=== PATIENT | female | born 1990 | race Caucasian/White ===

== ENCOUNTER 2017-07-25 09:33 | Inpatient (IN) | payer OTHER ==
[2017-07-25] VITALS (8 sets, daily range): BP systolic 116–128; BP diastolic 55–70; PULSE 64–95; RESP 18–20; TEMP 97.6–98.7; O2SAT 96–98
[~2017-07-25 09:33] MED LIST: PREN1CAP30 PO; ZANT150T2 PO
[2017-07-25 13:23] LABS: AUTOMATED NEUTROPHIL # 8.2 TH/MM3 (1.8-7.7); BASOPHIL % 0.3 % (0.0-2.0); EOSINOPHIL # 0.1 TH/MM3 (0-0.4); EOSINOPHIL % 0.5 % (0.0-4.0); HEMATOCRIT 33.5 % (35.0-46.0); HEMO FLAGS DIFF FINAL; LYMPH % 21.5 % (9.0-44.0); LYMPHOCYTE # 2.4 TH/MM3 (1.0-4.8); MEAN CELL VOLUME 90.6 FL (80.0-100.0); MEAN CORPUSCULAR HEMOGLOBIN 30.4 PG (27.0-34.0); MEAN CORPUSCULAR HGB CONC 33.5 % (32.0-36.0); MONO % 4.5 % (0.0-8.0); NEUT % 73.2 % (16.0-70.0); PLATELET COUNT 365 TH/MM3 (150-450); RED CELL DISTRIBUTION WIDTH 15.5 % (11.6-17.2); WHITE BLOOD COUNT 11.2 TH/MM3 (4.0-11.0)
--- NOTE | 2017-07-25 13:28 | HHI.HP ---
History & Physical H&P AGRONOMY INTERNSHIP Consult (Detail) Patient Name: Claritza Choe Unit Number: [id number] Date of : 1990 Patient Status: Registered Clinic Attending Doctor: Ayush Titus MD HPI HPI Chief Complaint Consultation for repeat Date Seen: Jul 25, 2017 Time Seen: 13:30 Travel History International Travel<30 Days: No Contact w/Intl Traveler<30Days: No Known Affected Area: No History of Present Illness HPI 26-year-old 4 para 2, AB 1 with an EDC of August 01 based on last menstrual period and consistent with second trimester ultrasound. She has had 2 prior C-sections and desires elective repeat. The risks benefits and alternatives were reviewed with her regarding this plan and consent was obtained to proceed with repeat on July 25 at 2 PM. Weeks Gestation: 37 Para: 2 : 4 Last Menstrual Period: Oct 25, 2016 : 1 History (Limited) History Past Medical History Medical History: Denies Significant Hx Obstetric History Obstetric History 2 prior C-sections [facility] has been uncomplicated. She smokes one half pack cigarettes per day. Past Surgical History Narrative Surgical 2 Family History Family History: Negative Social History Alcohol Use: No Tobacco Use: Yes (one half pack per day) Substance Abuse: No Allergies-Medications Allergies-Medications (Allergen,Severity, Reaction): Coded Allergies: No Known Allergies (Verified , 07/12/17) Home Meds Active Scripts Ranitidine (Zantac) 150 Mg Tab, 150 MG PO BID for Reduce Stomach Acid, #60 TAB 6 Refills Prov:Paulina Lofton 04/10/17 Without A W/Fe Fum-Fe (Provida Dha 16-16-1.25-110 mg) 1 Cap Cap, 1 CAP PO DAILY, #60 BOTTLE 5 Refills Prov:Paulina Lofton 04/10/17 ROS Review of Systems General / Constitutional: No: Fever, Weight Gain, Weight Loss, Chills, Other Cardiovascular: No: Irregular Rhythm, Chest Pain or Discomfort, Palpitations, Tachycardia, Syncope, Varicosities, Edema, Cyanosis, Other Respiratory: No: Cough, Short of Breath, Wheezing, Other Gastrointestinal: No: Nausea, Vomiting, Diarrhea, Abdominal Pain, Hematemesis, Hematochezia, Constipation, Changes in Bowel Habits, Indigestion, Loss of Appetite, Other Genitourinary: No: Urgency, Frequency, Dysuria, Nocturia, Hematuria, Decreased Urinary Output, Oliguria, Hesitancy, Dribbling, Incontinence, Pelvic Pain, Dyspareunia, Discharge, Menorrhagia, Vaginal Bleeding, Other Physical Exam Physical Exam Narrative GENERAL: Well-nourished, well-developed patient. SKIN: Warm and dry. HEAD: Normocephalic and atraumatic. EYES: No scleral icterus. No injection or drainage. ENT: No nasal drainage noted. Mucous membranes pink. Airway patent. NECK: Supple, trachea midline. No JVD. CARDIOVASCULAR: Regular rate and rhythm without murmurs, gallops, or rubs. RESPIRATORY: Breath sounds equal bilaterally. No accessory muscle use. ABDOMEN/GI: Abdomen soft, non-tender, bowel sounds present, no rebound, no guarding Gravid to [-] weeks size Fundal Height: [36-] GENITOURINARY: EXTREMITIES: No cyanosis or edema. BACK: Nontender without obvious deformity. No CVA tenderness. NEUROLOGICAL: Awake and alert. Motor and sensory grossly within normal limits. Five out of 5 muscle strength in all muscle groups. Normal speech. Data Data Data Labs O+, AST negative, hematocrit 30%, rubella immune, RPR nonreactive, hep C negative, HIV negative, GC and Chlamydia negative GBS negative MDM MDM Medical Record Reviewed: Yes Narrative Course / MDM Assessment: 3 9 week intrauterine with an EDC of August 01 with 2 prior C-sections desiring elective repeat Plan: The patient have repeat section on July 25 at 2 PM. Disposition: ADMIT Condition: Good AYUSH TITUS MD Jul 12, 2017 13:50 Ayush Titus II, MD Jul 25, 2017 13:28
[2017-07-25] MEDS ORDERED: LACTATED RINGER'S 1000 ML INJ 1,000 ML IV ONE (13:30)
[2017-07-25 13:37] LABS: BACTERIA, URINE OCC /hpf; BLOOD, URINE NEG (NEG); COMMENT (UR) CULT NOT INDICATED; CULTURE IF INDICATED CULT NOT INDICATED; GLUCOSE,URINE NEG (NEG); KETONE, URINE NEG (NEG); MUCUS URINE FEW /lpf (OCC); NITRITE,URINE NEG (NEG); SQUAMOUS EPITHELIAL CELL URINE 23 /hpf (0-5); URINE COLOR YELLOW (YELLW/STRAW)
[2017-07-25] MEDS ORDERED: LACTATED RINGER'S 1000 ML INJ 1,000 ML IV SCH ×2 (14:00→21:03)
[2017-07-25] MEDS ORDERED: ceFAZolin 2 GM PREMIX 50 ML IV SCH (14:15)
[2017-07-25] MEDS ORDERED: CITRIC ACID-SODIUM CITRATE LIQ 30 ML UDC PO SCH (14:45)
[2017-07-25] MEDS ORDERED: ONDANSETRON HCL 4 MG/2 ML VIAL ONE (14:51)
[2017-07-25] MEDS ORDERED: ACETAMINOPHEN 1000 MG/100 ML 100 ML IV ONE (14:51)
[2017-07-25] MEDS ORDERED: MORPHINE SULFATE PF 5 MG/10 ML VIAL ONE (14:51)
[2017-07-25] MEDS ORDERED: OXYTOCIN 10 UNIT/ML AMP ONE (14:51)
[2017-07-25] MEDS ORDERED: MORPHINE SULFATE PF 5 MG/10 ML VIAL IT ONE (15:00)
[2017-07-25] MEDS ORDERED: LACTATED RINGER'S 1,000 ML BAG IV ONE (15:22)
[2017-07-25] MEDS ORDERED: ACETAMINOPHEN 1000 MG/100 ML VIAL IV SCH (16:00)
[2017-07-25] MEDS ORDERED: SODIUM CHLORIDE 0.9% FLUSH 10 ML FLUSH IV FLUSH PRN (16:15)
[2017-07-25] MEDS ORDERED: ZOLPIDEM TARTRATE 5 MG TAB PO PRN (16:15)
[2017-07-25] MEDS ORDERED: OXYTOCIN 30 UNITS-500ML PREMIX 500 ML IV ONE (16:15)
[2017-07-25] MEDS ORDERED: ONDANSETRON HCL 4 MG/2 ML VIAL IV PUSH PRN (16:15)
[2017-07-25] MEDS ORDERED: oxyCODONE/ACETAMINOPHEN 5 MG/325 MG TAB PO PRN (16:15)
[2017-07-25] MEDS ORDERED: ACETAMINOPHEN 325 MG TAB PO PRN (16:15)
[2017-07-25] MEDS ORDERED: EPIDURAL-DIPHENHYDRAMINE HCL 50 MG CAP PO PRN (19:00)
[2017-07-25] MEDS ORDERED: EPIDURAL-DIPHENHYDRAMINE HCL 50 MG/ML VIAL IV PUSH PRN (19:00)
[2017-07-25] MEDS ORDERED: EPIDURAL-NALOXONE HCL 0.4 MG/ML AMP IV PUSH PRN (19:00)
[2017-07-25] MEDS ORDERED: EPIDURAL-NO SYSTEMIC NARCOTICS PRN (19:00)
[2017-07-25] MEDS ORDERED: EPIDURAL-DO NOT ADMINISTER ANTICOAGULANTS PRN (19:00)
[2017-07-25] MEDS: IBUPROFEN 600 MG TAB PO PRN (21:39)
[2017-07-26 01:28] VITALS: BP 112/69; PULSE 80; RESP 20; TEMP 98.1
[2017-07-26] MEDS ORDERED: OXYTOCIN 30 UNITS-500ML PREMIX 500 ML IV PRN (02:15)
[2017-07-26] MEDS ORDERED: KETOROLAC TROMETHAMINE 30 MG/ML (IVP) VIAL ONE (03:12)
[2017-07-26] MEDS: oxyCODONE/ACETAMINOPHEN 5 MG/325 MG TAB PO PRN ×5 (03:57→21:33)
[2017-07-26] MEDS: DOCUSATE SODIUM 50 MG/SENNA 8.6 MG TAB PO PRN ×2 (04:01→16:18)
[2017-07-26] MEDS ORDERED: KETOROLAC TROMETHAMINE 30 MG/ML (IVP) VIAL IV PUSH ONE (04:45)
[2017-07-26] MEDS: SODIUM CHLORIDE 0.9% FLUSH 10 ML FLUSH IV FLUSH SCH ×2 (05:09→20:52)
[2017-07-26 05:16] VITALS: BP 107/73; PULSE 79; RESP 18; TEMP 97.9
[2017-07-26 07:35] LABS: AUTOMATED NEUTROPHIL # 9.3 TH/MM3 (1.8-7.7); BASOPHIL % 0.4 % (0.0-2.0); EOSINOPHIL # 0.1 TH/MM3 (0-0.4); EOSINOPHIL % 0.7 % (0.0-4.0); HEMATOCRIT 29.1 % (35.0-46.0); HEMO FLAGS DIFF FINAL; LYMPH % 23.1 % (9.0-44.0); LYMPHOCYTE # 3.1 TH/MM3 (1.0-4.8); MEAN CELL VOLUME 91.5 FL (80.0-100.0); MEAN CORPUSCULAR HEMOGLOBIN 30.5 PG (27.0-34.0); MEAN CORPUSCULAR HGB CONC 33.3 % (32.0-36.0); MONO % 7.1 % (0.0-8.0); NEUT % 68.7 % (16.0-70.0); PLATELET COUNT 305 TH/MM3 (150-450); RED BLOOD COUNT 3.18 MIL/MM3 (4.00-5.30); RED CELL DISTRIBUTION WIDTH 15.8 % (11.6-17.2); WHITE BLOOD COUNT 13.6 TH/MM3 (4.0-11.0)
[2017-07-26 07:45] VITALS: BP 108/63; PULSE 88; RESP 20; TEMP 97.3
--- NOTE | 2017-07-26 08:42 | HHI.OB ---
Subjective Post Operative Day: 1 Remarks Pt seen and examined this morning. Postoperative day # 1 AFVSS overnight. Incision not draining. Decreased lochia. Denies dysuria. No breast tenderness. She is feeding the baby via breast and bottle. Appetite good. No nausea or vomiting. Patient has not yet had a bowel movement or passed bowel gas. Ambulating well. Denies calf pain or shortness of breath. Otherwise, she is doing well this morning and has no other concerns. Objective Vitals/I&O Vital Signs Date Time Temp Pulse Resp B/P (MAP) Pulse Ox O2 Delivery O2 Flow Rate FiO2 07/26/17 07:45 97.3 88 20 108/63 (78) 07/26/17 05:16 97.9 79 18 107/73 (84) 07/26/17 04:20 20 07/26/17 01:28 98.1 80 20 112/69 (83) 07/26/17 00:43 18 07/25/17 22:39 18 07/25/17 21:46 98.2 07/25/17 21:46 95 20 128/63 (84) 07/25/17 18:14 20 07/25/17 17:43 18 07/25/17 17:00 97.6 64 18 123/70 (87) 07/25/17 16:40 97.8 07/25/17 16:40 18 98 07/25/17 16:40 116/55 (75) 07/25/17 16:25 75 120/66 (84) 07/25/17 16:25 18 96 07/25/17 16:10 97.7 82 18 117/59 (78) 96 07/25/17 12:45 98.7 20 Result Diagram: 07/26/17 0710 Objective Remarks GENERAL: Well-nourished, well-developed patient. CARDIOVASCULAR: Regular rate and rhythm without murmurs, gallops, or rubs. RESPIRATORY: Breath sounds equal bilaterally. No accessory muscle use. ABDOMEN/GI: Abdomen soft, non-tender, bowel sounds present. Incision: Clean, dry and intact. Fundus: Firm, non-tender at umbilicus. GENITOURINARY: Light to moderate bleeding. EXTREMITIES: No cyanosis or edema, non-tender, without signs of DVT. Medications and IVs Current Medications Medications (Trade) Dose Ordered Sig/Jacinda Route Start Time Stop Time Status Last Admin Cefazolin Sodium/ Dextrose 50 ml @ 100 mls/hr [employer] IV 07/25/17 14:15 07/29/17 14:14 07/25/17 14:38 (Bicitra Liq) 30 ml [employer] PO 07/25/17 14:45 07/29/17 14:44 07/25/17 14:37 Lactated Ringer's 1,000 ml @ 100 mls/hr Q10H IV 07/25/17 21:03 07/26/17 17:02 07/25/17 21:42 Oxytocin 500 ml @ 100 mls/hr UNSCH X1 PRN IV 07/26/17 02:15 07/27/17 02:14 (NS Flush) 2 ml BID IV FLUSH 07/25/17 21:00 (NS Flush) 2 ml UNSCH PRN IV FLUSH 07/25/17 16:15 (Mylicon Chew) 80 mg QID PRN PO 07/25/17 16:15 (Tylenol) 650 mg Q6H PRN PO 07/25/17 16:15 (Motrin) 600 mg Q6H PRN PO 07/25/17 16:15 07/25/17 21:39 (Percocet 5-325 Mg) 1 tab Q4H PRN PO 07/25/17 16:15 (Percocet 5-325 Mg) 2 tab Q4H PRN PO 07/25/17 16:15 07/26/17 03:57 (Dawna-Colace) 2 tab Q12H PRN PO 07/25/17 16:15 07/26/17 04:01 (Ambien) 5 mg HS PRN PO 07/25/17 16:15 (M-M-R Ii Inj) 0.5 ml ONCE ONCE SQ 07/26/17 16:00 07/26/17 16:01 (Boostrix Inj) 0.5 ml ONCE ONCE IM 07/26/17 16:00 07/26/17 16:01 (Zofran Inj) 4 mg Q6H PRN IV PUSH 07/25/17 16:15 Miscellaneous Information NO SYSTEMIC NARCOTICS TO BE GIVEN FO... UNSCH PRN .XX 07/25/17 19:00 07/26/17 18:59 (Narcan Inj) 0.4 mg UNSCH PRN IV PUSH 07/25/17 19:00 07/26/17 18:59 (Benadryl Inj) 25 mg Q6H PRN IV PUSH 07/25/17 19:00 07/26/17 18:59 (Benadryl) 50 mg Q6H PRN PO 07/25/17 19:00 07/26/17 18:59 Miscellaneous Information ALL NURSING DEPARTMENTS UNSCH PRN .XX 07/25/17 19:00 07/26/17 18:59 Assessment/Plan Assessment and Plan 26y/o female who is postop day # 1 s/p . -Continue routine care. -Percocet and Motrin PRN pain. -Postop H&H: 9.7/29.1 -Encouraged OOB. Advised pelvic rest for 6 wks. will need follow-up appointment for incision check in 1-2 weeks. -Re: ctrl, she would like discuss her options at her follow-up appointment. -Anticipate discharge in 1-[address] Tacho MD Discharge Planning 1-2 days pending clinical course Te Sloan MD R2 Jul 26, 2017 08:42
[2017-07-26] MEDS: IBUPROFEN 600 MG TAB PO PRN ×3 (09:37→23:12)
[2017-07-26 12:00] VITALS: BP 112/67; PULSE 86; RESP 18; TEMP 97.9
[2017-07-26] MEDS ORDERED: DIPHTH/TETANUS/ACEL PERTUSSIS (BOOSTER) 0.5 ML VIAL/PFS IM ONE (16:00)
[2017-07-26] MEDS ORDERED: MEASLES, MUMPS, RUBELLA VACCINE 0.5 ML VIAL SQ ONE (16:00)
[2017-07-26 20:03] VITALS: BP 119/65; PULSE 97; RESP 18; TEMP 97.9
[2017-07-26] MEDS: SIMETHICONE 80 MG CHEWABLE TAB PO PRN (21:33)
[2017-07-27] MEDS: oxyCODONE/ACETAMINOPHEN 5 MG/325 MG TAB PO PRN ×3 (01:34→11:39)
[2017-07-27] MEDS: IBUPROFEN 600 MG TAB PO PRN (05:27)
[2017-07-27] MEDS ORDERED: ACET1TAB86 PO (08:30)
[2017-07-27] MEDS ORDERED: OXYC1TAB63 PO (08:30)
--- NOTE | 2017-07-27 08:54 | HHI.OB ---
Subjective Post Operative Day: 2 Remarks Postoperative day # 2. AFVSS overnight. Incision not draining. Decreased lochia. Denies dysuria. No breast tenderness. She is feeding the baby via formula. Appetite good. No nausea or vomiting. Patient has not yet had a bowel movement. Ambulating well. Denies calf pain or shortness of breath. Otherwise, she is doing well this morning and has no other concerns. Wants to go home. Objective Vitals/I&O Vital Signs Date Time Temp Pulse Resp B/P (MAP) Pulse Ox O2 Delivery O2 Flow Rate FiO2 07/27/17 00:12 18 07/26/17 22:33 18 07/26/17 20:03 97.9 97 18 119/65 (83) 07/26/17 12:00 97.9 86 18 112/67 (82) Result Diagram: 07/26/17 0710 Objective Remarks GENERAL: Well-nourished, well-developed female in no apparent distress. CARDIOVASCULAR: Regular rate and rhythm without murmurs, gallops, or rubs. RESPIRATORY: Breath sounds equal bilaterally. No accessory muscle use. ABDOMEN/GI: Abdomen soft, mildly tender to palpation over abdomen, bowel sounds present. Incision: Clean, dry and intact. Fundus: Firm, non-tender at umbilicus. GENITOURINARY: Light to moderate bleeding. EXTREMITIES: No cyanosis or edema, non-tender, without signs of DVT. 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 07/25/17 14:15 07/29/17 14:14 07/25/17 14:38 (Bicitra Liq) 30 ml [employer] PO 07/25/17 14:45 07/29/17 14:44 07/25/17 14:37 (NS Flush) 2 ml BID IV FLUSH 07/25/17 21:00 (NS Flush) 2 ml UNSCH PRN IV FLUSH 07/25/17 16:15 (Mylicon Chew) 80 mg QID PRN PO 07/25/17 16:15 07/26/17 21:33 (Tylenol) 650 mg Q6H PRN PO 07/25/17 16:15 (Motrin) 600 mg Q6H PRN PO 07/25/17 16:15 07/27/17 05:27 (Percocet 5-325 Mg) 1 tab Q4H PRN PO 07/25/17 16:15 (Percocet 5-325 Mg) 2 tab Q4H PRN PO 07/25/17 16:15 07/27/17 05:27 (Dawna-Colace) 2 tab Q12H PRN PO 07/25/17 16:15 07/26/17 16:18 (Ambien) 5 mg HS PRN PO 07/25/17 16:15 (Zofran Inj) 4 mg Q6H PRN IV PUSH 07/25/17 16:15 Assessment/Plan Assessment and Plan 26y/o female who is postop day # 2 s/p . -Continue routine care. -Percocet and Motrin PRN pain. -Postop H&H: 9.7/29.1 -Encouraged OOB. Advised pelvic rest for 6 wks. will need follow-up appointment for incision check in 1-2 weeks. -Re: ctrl, she would like discuss her options at her follow-up appointment. -Anticipate discharge today or tomorrow pending pain control dw Dr. Massimo MD Discharge Planning 1-2 days pending clinical course Adele Mcgowan MD R2 Jul 27, 2017 08:54
[2017-07-27 09:00] VITALS: BP 112/70; PULSE 90; RESP 20; TEMP 98.2
[2017-07-27] MEDS ORDERED: KETOROLAC TROMETHAMINE 10 MG TAB PO ONE (11:00)
[2017-07-27] MEDS: SIMETHICONE 80 MG CHEWABLE TAB PO PRN (11:38)
[2017-07-27] MEDS: DOCUSATE SODIUM 50 MG/SENNA 8.6 MG TAB PO PRN (11:39)
--- NOTE | 2017-07-27 12:14 | HHI.DCPOC ---
Discharge Care Plan Diagnosis: (1) delivery delivered Report Symptoms to Your Doctor -Temperature above 100.5 degrees -Redness, of incision or excessive or foul smelling drainage -Unusual pain or calf pain -Increased vaginal bleeding -Painful or difficulty urinating -Feelings of extreme sadness or anxiety after 2 weeks Goals to Promote Your Health * To prevent worsening of your condition and complications * To maintain your health at the optimal level Directions to Meet Your Goals Take your medications as prescribed Follow your dietary instruction Follow activity as directed Ensure plenty of rest for recovery Drink fluids for hydration Keep your appointments as scheduled Take your immunizations and boosters as scheduled If your symptoms worsen call your PCP, if no PCP go to Urgent Care Center or Emergency Room Smoking is Dangerous to Your Health. Avoid second hand smoke Call the 24-hour crisis hotline for domestic abuse at Adele Mcgowan MD R2 Jul 27, 2017 12:14 Gene Mendoza MD Jul 27, 2017 13:12
[2017-07-27] MEDS ORDERED: KETO10 PO (12:17)
[2017-07-27] MEDS ORDERED: SENN1TAB PO (12:53)
--- NOTE | 2017-07-27 12:56 | HHI.PR ---
Addendum to Inpatient Note Addendum Reason: Additional Documentation Additional Information Patient re-evaluated at bedside and now states she wants to be discharged today. She would like to go home this afternoon. Baby has been cleared by neonatology service for home. Vital signs reviewed and wnl. Abdominal exam reveals generalizes pain but patient denies pain with ambulation, which she has done regularly since delivery without incident. Still passing flatus without BM but she states she can take Dawna-Colace at home. Lochia decreasing. She is counseled to follow-up with [employer] within one week-states she has appointment with [facility] scheduled. She is counseled to return to hospital if any new concerns arise. She has no other concerns and expressed understanding of importance of follow-up. TAMIKA Mendoza (Adele Mcgowan MD R2) Additional Information Patient seen and evaluated with resident under direct supervision, agree with assessment and plan. (Gene Mendoza MD) Adele Mcgowan MD R2 Jul 27, 2017 12:56 Gene Mendoza MD Jul 27, 2017 13:13
[2017-07-27] MEDS ORDERED: KETOROLAC TROMETHAMINE 10 MG TAB PO SCH (15:00)
--- NOTE | 2017-07-27 20:12 | MP ---
cc: JESSICA WINKLER MD DATE OF SURGERY 07/25/17 PREOPERATIVE DIAGNOSIS Previous at term for repeat . POSTOPERATIVE DIAGNOSIS Previous at term for repeat . PROCEDURE PERFORMED Repeat low transverse section. SURGEON Tacho. DISASTER DIRECTOR Dr. Noland[facility] ANESTHESIA Spinal. PREOPERATIVE NOTE The patient is a 26-year-old white female G4, P2, previous section times two who presents for repeat section at 39-weeks. The patient understands the risks and benefits of the procedure. PROCEDURE The patient was taken to the operating room, placed in the supine position on the operating room table. After adequate spinal anesthesia was administered, she was prepped and draped for abdominal surgery. A previous Pfannenstiel incision was incised out and cast away. The incision carried through the fascia sharply and the fascia dissected off the rectus muscle and the rectus split in the midline. The peritoneal cavity was entered sharply. The bladder blade placed at the lower edge of the incision and the viscera peritoneum reflected off the lower uterine segment, placed on the bladder blade. A transverse hysterotomy was made and extended bluntly bilaterally and a female was delivered at 3:21 p.m., 's 6 and 9, weight 3250 grams. There were no complications. Delivery cord blood obtained. The placenta was manually extracted. The uterus exteriorized. The hysterotomy closed in a running layer of chromic followed by imbricating suture of same. Hemostasis was achieved. The bladder reapproximated with a 2-0 Vicryl running suture. The uterus elevated, blood suctioned from the cul-de-sac and gutters. The uterus placed into the peritoneal cavity. The parietal peritoneum closed in running layers of 2-0 Vicryl. The fascia closed in a running layer of 0 Vicryl. Subcutaneous tissues were reapproximated with 3-0 plain in a running suture. Skin closed with subcuticular stitch of 3-0 Monocryl. ___ dressing applied. ESTIMATED BLOOD LOSS 500 cc. COMPLICATIONS There were no complications. Sponge, needle and instrument counts were correct x 2 and the patient was taken to recovery in stable condition. MD RUPESH rL/ADELAIDA /4:33 PM /7:50 PM
[2017-08-09] MEDS ORDERED: AUGM500T7 PO (10:45)
== END 2017-07-27 15:19 | disposition home or self-care (01) | DRG 766 ==
LOC: H2EB 12:04 → H1EA 17:12
PROVIDERS: ADMIT Obstetrics & Gynecology Maternal & Fetal Medicine; ATTEND Obstetrics & Gynecology Maternal & Fetal Medicine
PROC: 10D00Z1 Extraction of Products of Conception, Low, Open Approach (ICD-10-PCS; principal; 2017-07-25)
DX: O34.219 Maternal care for unspecified type scar from previous cesarean delivery (principal); F17.210 Nicotine dependence, cigarettes, uncomplicated; Z37.0 Single live birth; Z3A.39 39 weeks gestation of pregnancy; O99.334 Smoking (tobacco) complicating childbirth
CPT/HCPCS: 59025; 81001; 85025; 86850; 86900; 86901; 90715; J0131; J0690; J1885; J2274; J2405; J2590; J7120